=== PATIENT | male | born 1955 | race Caucasian/White ===

== ENCOUNTER 2016-11-07 07:40 | Day surgery (SDC) | payer BC ==
[~2016-11-07] VITALS: Ht 172.7 cm; Wt 83.9 kg
[~2016-11-07 07:40] MED LIST: ACYCLOVIR800 MG PO; ALEVE220 M1 OR; BACTRIM DS1 TAB OR; CIPROFLOXACN250 M1 PO; CIPROFLOXACN500 MG PO; FLUTICASONE50 MCG; NO HOME MEDS; OMEPRAZOLE10 MG PO; PREDNISONE10 MG PO; ROBITUSSIN200 MG/10 PO; TRAMADOL HCL50 MG OR; WAL-ITIN1 TAB PO; ZITHROMAX250 MG PO
[2016-11-07 10:25] VITALS: BP 132/74
== END 2016-11-07 10:42 | disposition home or self-care (01) | DRG 951 ==
LOC: ENDO 07:40 → ORM 11:15 → ENDO 11:15
PROVIDERS: ATTEND Internal Medicine Gastroenterology
PROC: 0DJD8ZZ Inspection of Lower Intestinal Tract, Via Natural or Artificial Opening Endoscopic (ICD-10-PCS; principal; 2016-11-07)
DX: Z12.11 Encounter for screening for malignant neoplasm of colon (principal); R13.10 Dysphagia, unspecified; K64.4 Residual hemorrhoidal skin tags; K64.8 Other hemorrhoids; K21.9 Gastro-esophageal reflux disease without esophagitis; Z80.0 Family history of malignant neoplasm of digestive organs

== ENCOUNTER 2022-12-11 09:33 | Emergency (ER) | payer BC ==
[~2022-12-11] VITALS: Ht 172.7 cm; Wt 87.0 kg
[2022-12-11 09:40] VITALS: BP 152/94
[2022-12-11 10:00] VITALS: BP 153/84
[2022-12-11 10:30] VITALS: BP 142/79
[2022-12-11 11:00] VITALS: BP 146/78
[2022-12-11] MEDS ORDERED: NAPROXEN500 MG PO (11:18)
[2022-12-11 11:21] VITALS: BP 141/84
[2022-12-11 11:30] VITALS: BP 140/87
== END 2022-12-11 11:30 | disposition home or self-care (01) | DRG 554 ==
LOC: ED 09:33
DX: M16.12 Unilateral primary osteoarthritis, left hip (principal); I10 Essential (primary) hypertension

== ENCOUNTER 2023-11-21 12:09 | Inpatient (IN) | payer MEDICARE ==
[~2023-11-21] VITALS: Ht 172.7 cm; Wt 88.5 kg
[2023-11-21] VITALS (25 sets, daily range): BP systolic 111–142; BP diastolic 60–82
[~2023-11-21 12:09] MED LIST changes: +NAPROXEN500 MG PO
[2023-11-21] MEDS ORDERED: SUCCINYLCHOLINE CHLORIDE 20 MG/ML 10ML VIAL IV ONE (12:25)
[2023-11-21] MEDS ORDERED: DEXAMETHASONE SODIUM PHOSPHATE PF 10 MG/ML SDV IV ONE (12:25)
[2023-11-21] MEDS ORDERED: ROCURONIUM BROMIDE 10 MG/ML 5ML VIAL IV ONE (12:25)
[2023-11-21] MEDS ORDERED: ONDANSETRON HCl 4 MG/2 ML SDV IV ONE ×2 (12:25→12:35)
[2023-11-21] MEDS ORDERED: SUGAMMADEX SODIUM 200 MG/2 ML SDV IV ONE (12:25)
[2023-11-21] MEDS ORDERED: PROPOFOL 200 MG/20 ML VIAL IV ONE (12:25)
[2023-11-21] MEDS ORDERED: LIDOCAINE HCL 2% 2ML SDV IV ONE (12:25)
--- NOTE | 2023-11-21 12:25 | NUR ---
PATIENT TO ROOM 3
[2023-11-21] MEDS ORDERED: SODIUM CHLORIDE 0.9% 1,000 ML IV ONE ×2 (12:35→17:22)
[2023-11-21] MEDS ORDERED: MORPHINE SULFATE 4 MG/ML VIAL IV ONE (12:35)
[2023-11-21 12:59] LABS: BASO% 0.1 % (0-3); HEMATOCRIT 43.5 % (39.0-50.0); HEMOGLOBIN 14.7 g/dl (14.0-18.0); IMMATURE GRANULOCYTES 0.4 % (0.0-5.0); LYMPH% 4.3 % (15-41); MEAN CELL VOLUME 92.8 fL CALC (80.0-100.0); MEAN CORPUSCULAR HGB 31.3 pG CALC (26.0-32.0); MEAN CORPUSCULAR HGB CONC 33.8 g/dL CAL (32.0-36.0); MONO% 6.1 % (2-13); NEUT# 17.98 thou/uL (1.82-7.42); NEUT% 89.1 % (42-76); RED BLOOD COUNT 4.69 mill/uL (4.70-6.10); RED CELL DISTRI WIDTH 13.2 % (11.5-15.5)
[2023-11-21 13:30] LABS: CREATININE 1.2 mg/dL (0.7-1.3); POTASSIUM 3.4 mmol/l (3.5-5.1)
[2023-11-21] MEDS ORDERED: AMLODIPINE BESYL5 MG PO (13:30)
[2023-11-21] MEDS ORDERED: SERTRALINE HYD100 MG (13:30)
[2023-11-21] MEDS ORDERED: BUPROPN HCL150 MG PO (13:31)
--- NOTE | 2023-11-21 17:07 | NUR ---
OR HERE TO GET PT.
[2023-11-21] MEDS ORDERED: LIDOcaine HCl 1% (Local Anesth.) 20 ML VIAL ONE (17:08)
[2023-11-21] MEDS ORDERED: SODIUM CHLORIDE 1,000 ML BTL IR ONE (17:08)
[2023-11-21] MEDS ORDERED: STERILE WATER FOR IRRIGATION 1,000 ML BTL IR ONE (17:08)
[2023-11-21] MEDS ORDERED: FAMOTIDINE 10MG/ML 2ML SDV IV ONE (17:22)
[2023-11-21] MEDS ORDERED: CLINDAMYCIN PHOSPHATE 50 ML IV ONE ×2 (17:55→18:05)
[2023-11-21] MEDS ORDERED: oxyCODONE 5MG/ ACETAMINOPHEN 325MG TAB PO PRN (18:15)
[2023-11-21] MEDS ORDERED: SODIUM CHLORIDE 0.9% 1,000 ML IV PRN (18:15)
[2023-11-21] MEDS ORDERED: HYDROmorphone HCL 2 MG/AMP IV PRN (18:15)
[2023-11-21] MEDS ORDERED: SIMETHICONE 20 MG/0.3 ML PO PRN (18:20)
[2023-11-21] MEDS ORDERED: LABETALOL HCL 20 MG/ 4 ML CARTRG IV PRN (18:20)
[2023-11-21] MEDS ORDERED: ACETAMINOPHEN 100 ML IV ONE (18:53)
--- NOTE | 2023-11-21 19:41 | NUR ---
PATIENT TRANSFERED UP TO [facility] FROM [place] WITH OR STAFF X2. PATIENT ALERT BUT DROWSY. REPORT RECEIVED BY OR NURSES. I VERIFIED IV MEDS WITH THEM. OBSERVED ABDOMEN SURGICAL SITES WITH OR NURSES. DERMABOND X3. DRESSING TO RIGHT ABDOMEN AREA TAVON DRAIN, WITH RED OUTPUT. BELLY APPEARS DISTENDED. PATIENT DENIES NEEDING ANYTHING AT THIS TIME. OXYGEN ON VIA NC AT 1.5L PER OR NURSES. ORIENTED PATIENT TO ROOM AND CALL BRUNO. BED IN LOW POSITION. CALL BRUNO IN REACH.
--- NOTE | 2023-11-21 20:45 | NUR ---
PATIENT TOLERATING PO FLUIDS AND JELLO.
[2023-11-21] MEDS ORDERED: PANTOPRAZOLE SODIUM Sesquihydr 40 MG/TAB PO SCH (21:00)
--- NOTE | 2023-11-21 21:53 | NUR ---
RT IN ROOM TEACHING INCENTIVE SPIROMETER WITH PATIENT WITH RETURN DEMONSTRATION.
--- NOTE | 2023-11-21 23:00 | NUR ---
PATIENT STOOD UP ON SIDE OF BED WITH ASSISTANCE, UNABLE TO VOID. PER PATIENT HE DIDNT FEEL LIKE HE HAD THE URGE TO VOID WHILE TRYING. PATIENT BLADDER SCANNED, WITH 179CC. WILL CONTINUE TO MONITORING PATIENT VOIDING STATUS.
[2023-11-22] MEDS ORDERED: KETOROLAC TROMETHAMINE 15 MG/ML SDV IV SCH
--- NOTE | 2023-11-22 | NUR ---
PATIENT OBSERVED RESTING IN BED. NO DISTRESS NOTED. NO COMPLAINTS OF PAIN AT THIS TIME. PATIENT DID VOICE HE HAS BEEN PERIODICALLY BELCHING WITH RELIEF. BED REMAINS IN LOW POSITION. CALL BRUNO IN REACH.
[2023-11-22] MEDS ORDERED: CLINDAMYCIN PHOSPHATE 50 ML IV SCH (01:00)
--- NOTE | 2023-11-22 01:58 | NUR ---
PATIENT STOOD ON SIDE OF BED. UNABLE TO VOID. BLADDER SCANNED AGAIN, 295CC.
[2023-11-22 03:24] VITALS: BP 133/73
--- NOTE | 2023-11-22 03:38 | NUR ---
PATIENT AMBULATED TO RESTROOM PER HIS REQUEST. AMBULATED WITH NURSES X2. STEADY GAIT. PATIENT VOIDED 300CC, CAMACHO COLORED URINE. URINE SENT TO LAB PER ORDER. PATIENT DENIES ANY PAIN AT THIS TIME. CURRENTLY EATING AN URUGUAYAN ICE AND TOLERATING WELL. FRESH ICE WATER AT BEDSIDE. CALL BRUNO IN REACH.
[2023-11-22 03:42] LABS: URINE BILIRUBIN - DIPSTICK Negative (NEGATIVE); URINE BLOOD DIPSTICK Trace-lysed (NEGATIVE); URINE GLUCOSE - DIPSTICK 100 mg/dL (NEGATIVE); URINE KETONE Negative (NEGATIVE); URINE LEUK ESTERASE Negative (NEGATIVE); URINE NITRITE - DIPSTICK Negative (Negative); URINE PROTEIN - DIPSTICK 100 mg/dL (NEG-TRACE); URINE SPECIFIC GRAVITY >=1.030; URINE UROBILINOGEN - DIPSTICK 0.2 E.U./dL (0.2)
[2023-11-22 03:45] LABS: URINE COLOR Yellow
[2023-11-22 03:49] LABS: URINE BACTERIA FEW hpf; URINE RBC 0-2 RBC/hpf (0-5); URINE SQUAMOUS EPITHELIAL CELL FEW EPI/hpf (0-FEW)
[2023-11-22 05:47] LABS: IMMATURE GRANULOCYTES 0.4 % (0.0-5.0); LYMPH% 4.4 % (15-41); MEAN CELL VOLUME 94.7 fL CALC (80.0-100.0); MEAN CORPUSCULAR HGB 32.1 pG CALC (26.0-32.0); MEAN CORPUSCULAR HGB CONC 33.9 g/dL CAL (32.0-36.0); MONO% 3.4 % (2-13); NEUT# 12.3 thou/uL (1.82-7.42); NEUT% 91.8 % (42-76); RED BLOOD COUNT 3.8 mill/uL (4.70-6.10); RED CELL DISTRI WIDTH 13.4 % (11.5-15.5)
[2023-11-22 05:59] LABS: HEMOGLOBIN 12.2 g/dl (14.0-18.0)
[2023-11-22 07:07] VITALS: BP 118/69
--- NOTE | 2023-11-22 08:15 | NUR ---
Pt walked to bathroom, with minimal assistance. No complaints, no distress.
[2023-11-22] MEDS ORDERED: amLODIPine BESYLATE 5 MG/TAB PO SCH (09:00)
--- NOTE | 2023-11-22 12:15 | NUR ---
Pt resting in bed, visitors at bedside. No distress, no complaints.
[2023-11-22 15:36] VITALS: BP 119/68
--- NOTE | 2023-11-22 16:05 | NUR ---
Pt sitting in chair. Pt states, "I feel better but I want to lay down." Pt transfer easily to bed.
[2023-11-22 19:00] VITALS: BP 139/67
[2023-11-22 20:00] VITALS: BP 139/67
--- NOTE | 2023-11-22 20:10 | NUR ---
REPORT RECIEVED FROM [facility] NURSE. TURNER CHIN. PT RESTING IN BED WATCHING TELEVISION. PT IS A&O X3, AND ABLE TO MAKE NEEDS KNOWN. PT DOES NOT SHOW ANY S&S OF DISTRESS AT THIS TIME. INCENTIVE SPIROMETER AT BEDSIDE, PT EDUCATED ON USE OF DEVICE. BOWEL SOUNDS ACTIVE x4 QUADRANTS, LUNG SOUNDS CLEAR UPON AUSCULTATION. PERIPHERAL PULSES STRONG. PT PASSING GAS AT THIS TIME. DRESSING NOTED TO ABDOMEN, WITH TAVON DRAIN IN PLACE. NO DRAINAGE OR REDNESS NOTED AT SITE OF INSERTION. 2 SURGICAL INCISION SITES NOTED TO ABDOMEN, SEALED WITH DERMABOND, THAT APPEAR HEALTHY WITH NO SIGNS OF INFECTION. PT DOES NOT OFFER ANY COMPLAITNS AT THIS TIME. DENIES PAIN. SLIGHT ABDOMINAL TENDERNESS UPON PALPATION TO (R) SIDE OF ABDOMEN. PT DENIES N/V/D AT THIS TIME. PT EDUCATED ON MEDICATION SCHEDULE AND POC. CALL LIGHT IN REACH, AND SAFETY PRECAUTIONS IN PLACE.
--- NOTE | 2023-11-22 21:30 | NUR ---
PT ENCOURAGED TO AMBULATE. THIS GREASE MONKEY ASSISTED PT OOB AND TO WALK 100 FT IN HALLWAY. PT TOLERATED WELL WITH NO COMPLAINTS VOICED. PT ASSISTED TO BATHROOM. 200 CC OF CLEAR, CAMACHO URINE VOIDED. PT ASSISTED BACK TO BED. SCD IN PLACE AT THIS TIME. CALL LIGHT IN REACH, AND SAFETY PRECAUTIONS IN PLACE.
--- NOTE | 2023-11-23 00:06 | NUR ---
PT RESTING IN BED. PT STATES A PAIN OF 3, WILL FOLLOW UP PER EMAR. NO FURTHER COMPLAINTS VOICED FROM THE PT AT THIS TIME. PT DENIES ANY NEEDS. NO S&S OF DISTRESS NOTED AT THIS TIME. CALL LIGHT IN REACH, AND SAFETY PRECAUTIONS IN PLACE.
--- NOTE | 2023-11-23 04:29 | NUR ---
THIS BOTTOM SANDER ANSWERED PT CALL LIGHT. UPON ENTRY TO ROOM, PT SEEN IN ONLY UNDERGARMENTS, STANDING AT THE FOOT OF THE BED. WATERY, BROWN FECES NOTED FROM BED TO TOILET IN BATHROOM. PT STATES "IM SORRY, IT CAME OUT OF NO WHERE". PT ASSISTED TO BATHROOM AND ASSISTED IN HYGIENE CARE. LINEN CHANGED. PT ASSISTED BACK TO BED. NO COMPLAINTS OFFERED FROM PT AT THIS TIME. SCD REPLACED. REINFORCED USE OF CALL LIGHT WHEN AMBULATING IN ROOM. CALL LIGHT IN REACH, AND SAFETY PRECAUTIONS IN PLACE.
[2023-11-23 06:59] VITALS: BP 125/70
--- NOTE | 2023-11-23 07:04 | NUR ---
patient sitting up in recliner.
--- NOTE | 2023-11-23 07:29 | NUR ---
PATIENT SITTING UP IN CHAIR. PATIENT A&OX4 AND ABLE MAKE NEEDS KNOWN. PATIENT ABDOMEN DISTEND AND SOFT, TAVON DRAIN TO RIGHT LOWER SIDE INTACT, RESPIRATIONS EVEN AND UNLABORED, PEDAL PULSES PRESENT. PATIENT DENIES ANY NEEDS AT THIS TIME. WILL CONTINUE TO MONITOR.
--- NOTE | 2023-11-23 09:12 | NUR ---
patient requested to get back in bed , patient assisted back to bed.
[2023-11-23 10:21] VITALS: BP 137/75
--- NOTE | 2023-11-23 11:22 | NUR ---
patient ambulated down hallway with staff assistance.
--- NOTE | 2023-11-23 11:47 | NUR ---
PATIENT SITTING UP IN BED. FAMILY AT BEDSIDE. PATIENT DENIES ANY NEEDS AT THIS TIME. WILL CONTINUE TO MONITOR.
--- NOTE | 2023-11-23 13:20 | NUR ---
patient ambulated down hallway with stand by assistance with staff.
--- NOTE | 2023-11-23 15:49 | NUR ---
PATIENT LAYING IN BED WATCHING TV. PATIENT DENIES ANY NEEDS AT THIS TIME. WILL CONTINUE TO MONITOR.
[2023-11-23 18:31] VITALS: BP 130/68
--- NOTE | 2023-11-23 20:00 | NUR ---
REPORT RECEIVED FROM [facility] NURSE. CAITLYN CHIN. PT RESTING IN RECLINER CHAIR. FAMILY AT BEDSIDE. PT IS A&O X3, AND ABLE TO MAKE NEEDS KNOWN. INCENTIVE SPIROMETER AT BEDSIDE, EDUCATED ON USE OF DEVICE. PT IS ON ROOM AIR. LUNG SOUNDS CLEAR UPON AUSCULTATION. ABDOMEN IS DISTENDED AND SOFT, BUT BOWEL SOUNDS ARE ACTIVE X4 QUADRANTS. PT STATES THAT HIS LAST BM WAS TODAY. DRESSING NOTED TO ABDOMEN, WITH TAVON DRAIN. DRAIN EMPTIED AT THIS TIME, 35 CC OF SEROSANGUINOUS DRAINAGE. 2 OTHER INCISION SITES NOTED TO ABDOMEN, WITH NO S&S OF INFECTION. THIS SPECIAL EDUCATION SECRETARY ASSISTED PT TO BED, AND PLACE SCD TO BLE, PT TOLERATED WELL WITH NO COMPLAINTS VOICED. PERIPHERAL PULSES STRONG. PT EDUCATED ON MEDICATION SCHEDULE AND POC. CALL LIGHT IN REACH, AND SAFETY PRECAUTIONS IN PLACE.
--- NOTE | 2023-11-24 00:30 | NUR ---
PT RESTING IN BED WITH EYES CLOSED. RESPIRATIONS ARE EVEN AND UNLABORED. PT IS EASILY AROUSABLE. SCD REMAIN IN PLACE TO BLE. NO COMPLAINTS VOICED FROM PT AT THIS TIME. NO S&S OF DISTRESS NOTED AT THIS TIME. CALL LIGHT IN REACH, AND SAFETY PRECAUTIONS IN PLACE.
[2023-11-24 03:36] VITALS: BP 138/76
--- NOTE | 2023-11-24 04:30 | NUR ---
PT AMBULATING TO BATHROOM. THIS SCENERY BUILDER ASSISTED PT FROM BATHROOM TO RECLINING CHAIR, PT STATES "IM READY TO SIT UP". NO COMPLAINTS VOICED FROM THE PT AT THIS TIME. PT DENIES ANY NEEDS. CALL LIGHT IN REACH, AND SAFETY PRECAUTIONS IN PLACE.
--- NOTE | 2023-11-24 07:00 | NUR ---
patient remains in recliner.
[2023-11-24 07:02] VITALS: BP 140/71
--- NOTE | 2023-11-24 08:43 | NUR ---
BEDSIDE REPORT RECEIVED FROM OFF GOING NURSE. PATIENT AWAKE SITTING IN RECLINER CHAIR IN ROOM. RESPIRATIONS EVENA ND UNLABORED ON ROOM AIR. DENIES PAIN OR DISCOMFORT AT THIS TIME. IV FLUIDS CONTINUE. TAVON DRAIN WITH SMALL AMOUNT OF SEROUSANGINOUS DRAINAGE. NO SIGNS OF DISTRESS NOTED. CALL LIGHT WITHIN REACH.
--- NOTE | 2023-11-24 11:03 | NUR ---
PATIENT MADE AWARE THAT HE WILL BE DISCHARGING TODAY. PATIENT VERBALIZES UNDERSTANDING AND IS AGREEABLE. MOM GIVEN AT PATIENT REQUEST. NO SIGNS OF DISTRESS NOTED. PATIENT STATES "MY RIDE WILL BE HERE AT 1PM". CALL LIGHT WITHIN REACH.
[2023-11-24 15:32] VITALS: BP 142/75
--- NOTE | 2023-11-24 18:21 | NUR ---
PATIENT SITTING UP IN RECLINER CHAIR. DENIES PAIN OR DISCOMFORT. TAVON DRAIN EMPTIED. NO CONCERNS VOICED. SAFETY MEASURES IN PLACE. INCENTIVE SPIROMETER ENCOURAGED. CALL LIGHT WITHIN REACH.
[2023-11-24 19:14] VITALS: BP 142/79
[2023-11-24 19:18] VITALS: BP 142/79
--- NOTE | 2023-11-24 20:00 | NUR ---
RECEIVED REPORT FROM NURSE RICKIE LIMON WALKING IN THE HALLWAY, PATIENT ALERT ORIENTED, SALINE LOCK NOTED OPN LFA G 20 PATENT FLUSHES WELL, PATIENT DENIES NAUSEA/ VOMITING , TOLERATING REGULAR DIET, PATIENT ABDOMINAL INCISION WITH DERMABOND CDI, TAVON DRAIN NOTED LIGHT PINK FLUID, PATIENT ENCOURAGED ON THE USE INCENTIVE SPIROMETER INSPIRATORY VOLUME AT 1999.CALL LIGHT IN REACHED,
[2023-11-24] MEDS ORDERED: CIPROFLOXACIN HCL 500 MG/TAB PO SCH (21:00)
--- NOTE | 2023-11-25 | NUR ---
PATIENT RESTING IN BED EYES CLOSED, BREATHING EVBEN UNLABORED CALL LIGT IN REACHED.
[2023-11-25 03:33] VITALS: BP 156/79
[2023-11-25 03:52] VITALS: BP 156/79
--- NOTE | 2023-11-25 04:10 | NUR ---
PATIENT RESTING IN BED. EYES CLOSED, BREATHING EVEN UNALBORED CALL LIGHT IN REACHED,
[2023-11-25 05:14] LABS: BASO% 0.5 % (0-3); EOS% 5.6 % (0-8); HEMATOCRIT 37.4 % (39.0-50.0); HEMOGLOBIN 12.7 g/dl (14.0-18.0); IMMATURE GRANULOCYTES 1.4 % (0.0-5.0); MEAN CELL VOLUME 93.5 fL CALC (80.0-100.0); MEAN CORPUSCULAR HGB 31.8 pG CALC (26.0-32.0); MONO% 9.8 % (2-13); NEUT# 3.58 thou/uL (1.82-7.42); NEUT% 60.7 % (42-76); RED CELL DISTRI WIDTH 13.1 % (11.5-15.5)
--- NOTE | 2023-11-25 06:17 | NUR ---
TAVON DRAIN 30CC OF PEACH COLORED FLUUID
[2023-11-25 07:19] VITALS: BP 139/75
--- NOTE | 2023-11-25 08:14 | NUR ---
SHIFT CHANGE REPORT, PT AWAKE ALERT AND ORIENTED AMBULATING IN ROOM, C/O DULL ABD PAIN @ 1/10 AT TIHS TIME, TAVON DRAIN IN PLACE TO RLQ WITH DRESSING IN PLACE, CALL BRUNO IN REACH.
[2023-11-25] MEDS ORDERED: CIPROFLOXACN500 MG PO (09:56)
[2023-11-25 10:13] VITALS: BP 139/75
--- NOTE | 2023-11-25 10:55 | NUR ---
Discharge instructions given. Patient verbalizes understanding of same. Discharged in fair condition via Wheelchair to Home with spouse. All belongings sent with pt.
== END 2023-11-25 10:54 | disposition home or self-care (01) | DRG 399 ==
LOC: ED 12:09 → ED-I 15:26 → ED 15:36 → MS2 15:37
PROVIDERS: Family Medicine; ADMIT Surgery; ATTEND Surgery
PROC: 0DTJ4ZZ Resection of Appendix, Percutaneous Endoscopic Approach (ICD-10-PCS; principal; 2023-11-21)
DX: K35.33 Acute appendicitis with perforation, localized peritonitis, and gangrene, with abscess (principal); B96.20 Unspecified Escherichia coli [E. coli] as the cause of diseases classified elsewhere; I10 Essential (primary) hypertension; K21.9 Gastro-esophageal reflux disease without esophagitis; Z20.822 Contact with and (suspected) exposure to COVID-19
CPT/HCPCS: J0131; J0736; J1100; Q9967

== ENCOUNTER 2024-03-14 07:35 | Day surgery (SDC) | payer MEDICARE ==
[~2024-03-14] VITALS: Ht 172.7 cm; Wt 86.2 kg
[~2024-03-14 07:35] MED LIST changes: +AMLODIPINE BESYL5 MG PO; +BUPROPN HCL150 MG PO; +SERTRALINE HYD100 MG
[2024-03-14] MEDS ORDERED: FAMOTIDINE 10MG/ML 2ML SDV IV ONE (07:56)
[2024-03-14] MEDS ORDERED: LACTATED RINGER'S 1,000 ML IV ONE (07:57)
[2024-03-14 10:03] VITALS: BP 144/77
[2024-03-14] MEDS ORDERED: PROPOFOL 200 MG/20 ML VIAL IV ONE (12:38)
[2024-03-14] MEDS ORDERED: LIDOCAINE HCL 2% 2ML SDV IV ONE (12:38)
== END 2024-03-14 10:25 | disposition home or self-care (01) ==
LOC: ENDO 07:35 → ORM 08:00 → ENDO 08:40
PROVIDERS: ATTEND Surgery
PROC: 0DBN8ZX Excision of Sigmoid Colon, Via Natural or Artificial Opening Endoscopic, Diagnostic (ICD-10-PCS; principal; 2024-03-14)
DX: Z12.11 Encounter for screening for malignant neoplasm of colon (principal); K63.5 Polyp of colon; K57.30 Diverticulosis of large intestine without perforation or abscess without bleeding; K64.8 Other hemorrhoids; I10 Essential (primary) hypertension; Z80.0 Family history of malignant neoplasm of digestive organs